=== PATIENT | female | born 1935 | race African-American/Black ===

== ENCOUNTER → 2019-01-13 | Outpatient (REF) | payer MEDICARE ==
[~2019-01-13] MED LIST: ACTONEL35 MG OR; AMLODIPINE5 MG PO; AVELOX400 MG OR; CARVEDILOL6.25 MG PO; HYCOTUSS EXP1 ML OR; HYDRALAZINE25 MG PO; HYDROCHLOR12.5 MG/CA PO; LOSARTAN POTASS50 MG PO; LOTREL 5/101 CAP OR; METFORMIN500 MG PO; NEXIUM 24HR20 MG PO; TESSALON PERLE100 MG PO; TOPROL XL25 MG OR; TRAVATAN Z0.004 % OP; ZANTAC 75 OR
[2019-01-13 10:40] LABS: HEMATOCRIT 36.7 % (37.0-47.0); HEMOGLOBIN 11.3 g/dl (12.0-16.0); MEAN CELL VOLUME 95.8 fL CALC (80.0-100.0); MEAN CORPUSCULAR HGB 29.5 pG CALC (26.0-32.0); MEAN CORPUSCULAR HGB CONC 30.8 g/L CALC (32.0-36.0); RED BLOOD COUNT 3.83 mill/uL (4.20-5.60); RED CELL DISTRI WIDTH 15.4 % (11.5-15.5)
[2019-01-13 11:36] LABS: ALBUMIN 4.1 g/dL (3.2-5.0); ALKALINE PHOSPHATASE 82 u/l (38-126); ANION GAP 13 (6-22 (CALC)); BILIRUBIN, TOTAL 0.7 mg/dL (0.0-1.4); BUN 10 mg/dL (8-23); BUN/CREATININE RATIO 10 (12-20 (CALC)); CALCULATED LDLCHOLESTEROL 98 mg/dL (62-129 (CALC)); CARBON DIOXIDE 30 mmol/l (22-30); CHLORIDE 106 mmol/l (95-108); CHOLESTEROL HDL RATIO 4.2 (<4.4 (CALC)); GFR 53 ML/MIN (>=60 (CALC)); GFR FOR AFR.AMER. > 60 ML/MIN (>=60 (CALC)); HDL CHOLESTEROL 35 mg/dL (>=40); POTASSIUM 4.2 mmol/l (3.5-5.1); SGOT/AST 26 u/l (9-36); SODIUM 145 mmol/l (137-146); TOTAL CHOLESTEROL 149 mg/dl (0-199); TOTAL PROTEIN 8.8 g/dL (6.3-8.2); TOTAL TRIGLYCERIDES 82 mg/dl (30-149); VLDL CHOLESTROL 16 mg/dl (0-48 (CALC))
[2019-01-13 11:57] LABS: TSH, 3RD GENERATION 1.51 uIU/mL (0.47 - 4.68)
== END | disposition home or self-care (01) ==
LOC: LAB 09:16
PROVIDERS: ATTEND Nurse Practitioner
DX: E11.29 Type 2 diabetes mellitus with other diabetic kidney complication (principal); E78.49 Other hyperlipidemia; I10 Essential (primary) hypertension

== ENCOUNTER 2020-03-26 16:30 | Observation (INO) | payer MEDICARE ==
[~2020-03-26] VITALS: Ht 172.7 cm; Wt 70.4 kg
[2020-03-26 18:12] LABS: HEMATOCRIT 35.5 % (37.0-47.0); HEMOGLOBIN 11.6 g/dl (12.0-16.0); IMMATURE GRANULOCYTES 0.3 % (0.0-5.0); MEAN CORPUSCULAR HGB 29.1 pG CALC (26.0-32.0); MEAN CORPUSCULAR HGB CONC 32.7 g/dL CAL (32.0-36.0); NEUT# 2.44 thou/uL (2.00-7.15); RED BLOOD COUNT 3.99 mill/uL (4.20-5.60); RED CELL DISTRI WIDTH 14.6 % (11.5-15.5)
[2020-03-26 18:20] LABS: ACT PARTIAL THROMBO TIME 25.7 SECONDS (20.0-32.5); PROTHROMBIN TIME 10.5 SECONDS (9.0-12.5)
[2020-03-26 18:22] LABS: ALBUMIN 4.1 g/dL (3.2-5.0); ALKALINE PHOSPHATASE 99 u/l (38-126); AMYLASE 77 u/l (30-110); ANION GAP 12 (6-22 (CALC)); BILIRUBIN, TOTAL 0.5 mg/dL (0.0-1.4); BUN 17 mg/dL (8-23); BUN/CREATININE RATIO 18 (12-20 (CALC)); CARBON DIOXIDE 29 mmol/l (22-30); CHLORIDE 103 mmol/l (95-108); GFR 53 ML/MIN (>=60 (CALC)); GFR FOR AFR.AMER. > 60 ML/MIN (>=60 (CALC)); LIPASE 263 u/l (23-300); POTASSIUM 3.8 mmol/l (3.5-5.1); SGOT/AST 27 u/l (9-36); SODIUM 140 mmol/l (137-146)
[2020-03-26 20:55] VITALS: BP 149/67
[2020-03-27 00:30] VITALS: BP 139/69
[2020-03-27 03:58] VITALS: BP 111/59
[2020-03-27 05:59] LABS: HEMATOCRIT 31.9 % (37.0-47.0); HEMOGLOBIN 10.4 g/dl (12.0-16.0); IMMATURE GRANULOCYTES 0.7 % (0.0-5.0); MEAN CELL VOLUME 89.6 fL CALC (80.0-100.0); MEAN CORPUSCULAR HGB 29.2 pG CALC (26.0-32.0); MEAN CORPUSCULAR HGB CONC 32.6 g/dL CAL (32.0-36.0); NEUT# 1.67 thou/uL (2.00-7.15); RED BLOOD COUNT 3.56 mill/uL (4.20-5.60); RED CELL DISTRI WIDTH 14.6 % (11.5-15.5)
[2020-03-27 06:12] LABS: ANION GAP 8 (6-22 (CALC)); BUN 14 mg/dL (8-23); BUN/CREATININE RATIO 16 (12-20 (CALC)); CARBON DIOXIDE 28 mmol/l (22-30); CHLORIDE 106 mmol/l (95-108); CREATININE 0.8 mg/dL (0.5-1.0); GFR > 60 ML/MIN (>=60 (CALC)); GFR FOR AFR.AMER. > 60 ML/MIN (>=60 (CALC)); POTASSIUM 3.3 mmol/l (3.5-5.1); SODIUM 139 mmol/l (137-146)
[2020-03-27 08:15] VITALS: BP 142/54
[2020-03-27] MEDS ORDERED: FUROSEMIDE20 MG PO (10:00)
[2020-03-27] MEDS ORDERED: POTASSIUM CHLO10 ME4 PO (10:00)
[2020-03-27] MEDS ORDERED: COZAAR100 MG PO (10:01)
[2020-03-27] MEDS ORDERED: HYDRALAZINE10 MG PO (10:01)
[2020-03-27] MEDS ORDERED: BYSTOLIC20 MG PO (10:02)
[2020-03-27] MEDS ORDERED: AMLODIPINE BESY10 MG PO (10:02)
[2020-03-27] MEDS ORDERED: LUMIGAN0.01 % OU (10:04)
[2020-03-27] MEDS ORDERED: METFORMIN500 M2 PO (10:04)
[2020-03-27] MEDS ORDERED: PROTONIX40 M2 PO (12:15)
== END 2020-03-27 14:05 | disposition home or self-care (01) ==
LOC: ED 16:30 → ED-I 18:40 → ED 18:58 → ED-I 18:59 → MS2 18:59
PROVIDERS: ADMIT Internal Medicine; ATTEND Internal Medicine
DX: R07.2 Precordial pain (principal); K21.9 Gastro-esophageal reflux disease without esophagitis; I11.0 Hypertensive heart disease with heart failure; I50.32 Chronic diastolic (congestive) heart failure; I25.10 Atherosclerotic heart disease of native coronary artery without angina pectoris; E11.9 Type 2 diabetes mellitus without complications; I25.2 Old myocardial infarction; Z79.84 Long term (current) use of oral hypoglycemic drugs; Z20.828 Contact with and (suspected) exposure to other viral communicable diseases
CPT/HCPCS: G0378

== ENCOUNTER 2020-07-26 08:37 | Inpatient (IN) | payer MEDICARE ==
[~2020-07-26] VITALS: Ht 172.7 cm; Wt 66.3 kg
[~2020-07-26 08:37] MED LIST changes: +AMLODIPINE BESY10 MG PO; +BYSTOLIC20 MG PO; +COZAAR100 MG PO; +FUROSEMIDE20 MG PO; +HYDRALAZINE10 MG PO; +LUMIGAN0.01 % OU; +METFORMIN500 M2 PO; +POTASSIUM CHLO10 ME4 PO; +PROTONIX40 M2 PO
--- NOTE | 2020-07-26 08:40 | NUR ---
PT WHEELED TO ROOM # 10 FOR BEDSIDE TRIAGE.
--- NOTE | 2020-07-26 08:45 | NUR ---
PT CHANGED TO GOWN. EKG DONE. MONITORS APPLIED. PT AO X 3. SKIN PINK WARM AND DRY. REPORTS GENERALIZED FRONTAL CHEST PAIN, WORSE WITH PALPATION SINCE 0600
[2020-07-26 09:26] LABS: IMMATURE GRANULOCYTES 0.4 % (0.0-5.0); MEAN CELL VOLUME 88.6 fL CALC (80.0-100.0); MEAN CORPUSCULAR HGB CONC 32.7 g/dL CAL (32.0-36.0); NEUT# 4.76 thou/uL (2.00-7.15); RED BLOOD COUNT 3.17 mill/uL (4.20-5.60); RED CELL DISTRI WIDTH 15.7 % (11.5-15.5)
[2020-07-26 09:31] LABS: HEMATOCRIT 28.1 % (37.0-47.0); HEMOGLOBIN 9.2 g/dl (12.0-16.0)
[2020-07-26 09:47] LABS: ALBUMIN 3.5 g/dL (3.2-5.0); ALKALINE PHOSPHATASE 68 u/l (38-126); AMYLASE 125 u/l (30-110); ANION GAP 11 (6-22 (CALC)); BILIRUBIN, TOTAL 0.5 mg/dL (0.0-1.4); BUN 22 mg/dL (8-23); BUN/CREATININE RATIO 28 (12-20 (CALC)); CARBON DIOXIDE 25 mmol/l (22-30); CHLORIDE 105 mmol/l (95-108); CREATININE 0.8 mg/dL (0.5-1.0); GFR > 60 ML/MIN (>=60 (CALC)); GFR FOR AFR.AMER. > 60 ML/MIN (>=60 (CALC)); LIPASE 729 u/l (23-300); POTASSIUM 3.4 mmol/l (3.5-5.1); SODIUM 136 mmol/l (137-146); TOTAL PROTEIN 7.6 g/dL (6.3-8.2)
[2020-07-26 09:48] LABS: SGOT/AST 44 u/l (9-36)
[2020-07-26 09:58] LABS: MYOGLOBIN 26 ng/mL (0 - 62)
--- NOTE | 2020-07-26 10:14 | NUR ---
MULTIPLE ATTEMPTS TO START IV FOR CT UNSUCCESSFUL.
--- NOTE | 2020-07-26 10:39 | NUR ---
PT RESTING ON STRETCHER. AWAITING PICC LINE INSERTION
--- NOTE | 2020-07-26 10:48 | NUR ---
PT TO XRAY FOR PICC LINE INSERTION
[2020-07-26] MEDS ORDERED: CARVEDILOL12.5 MG PO (11:10)
--- NOTE | 2020-07-26 12:00 | NUR ---
PT RETURNED FROM CT. LABS DRAWN. PT POSITIONED FOR COMFORT. MONITORS IN PLACE.
[2020-07-26] MEDS ORDERED: RAYOS1 MG PO (12:20)
--- NOTE | 2020-07-26 13:00 | NUR ---
PT RESTING ON STRETCHER. AWAITING RESULTS
--- NOTE | 2020-07-26 13:45 | NUR ---
REPORT GIVEN TO BHARTI ANNPE MANAGER
--- NOTE | 2020-07-26 14:00 | NUR ---
PT TRANSPORTED VIA STRETCHER TO MED SURG TELEMETRY IN PLACE
--- NOTE | 2020-07-26 14:00 | NUR ---
PT ARRIVED FROM ER VIA STRETCHER ACCOMPANIED BY STAFF. IV SITE IS FREE FROM REDNESS OR EDEMA TELE MONITOR IN PLACE.
--- NOTE | 2020-07-26 14:10 | NUR ---
ASSESSMENT IS COMPLETED: IV SITE IS FREE FROM REDNESS OR EDEMA. HR IS REG,PULSES ARE STRONG X4, ABD IS SOFT WITH ACTIVE BS. BREATH SOUNDS ARE CLEAR,BILATERALLY, C/O PAIN IN MID SECTION OF CHEST AND TOWARDS THE BACK. TELE MONITOR IN PLACE. CONTINUE TO OSBERVE AND MONITOR. PT HAS A PICC LINE AND ALSO A REGULAR IV IN THE HAND.
[2020-07-26 14:31] VITALS: BP 164/86
--- NOTE | 2020-07-26 16:30 | NUR ---
PT IS RESTING IN BED WITH NO DISTRESS NOTED.
[2020-07-26 17:31] VITALS: BP 157/75
--- NOTE | 2020-07-26 18:35 | NUR ---
LABS DRAWN AND SENT FOR TESTING.
[2020-07-26 19:15] VITALS: BP 139/81
--- NOTE | 2020-07-26 20:00 | NUR ---
PATIENT ALERT, VERBAL, ABLE TO MAKE NEEDS KNOWN. ABLE TO TOLERATE MEDS WELL WHOLE. PATIENT REMAINS NPO--ICE CHIPS ONLY ORDERED. PIV SITE PATENT TO LEFT HAND--FLUSHES WELL--SITE WITHOUT ANY S/S OF INFECTION NOTED--DRSG C/D/I. PICC LINE ALSO PATENT TO RUE--FLUSHES WELL--SITE WITHOUT ANY S/S OF INFECTION NOTED--NS W/40K INFUSING @ 75ML/HR WITHOUT DIFFICULTY--TOLERATING INFUSION WELL. TROPONIN DRAWN @ 6PM WNL @ 0.020--DUE AGAIN Q HOURS @ 12AM. NO C/OS OF CHEST PAIN/NAUSEA, OR VOMITING--ONLY HAS C/OS ABDOMNIAL PAIN--MEDICATED @ HS WITH PRN MORPHINE WITH POSITIVE EFFECT. TELEMETRY IN PLACE WITH SINUS RHYTHM W/IVCD @ 80. CONT OF BOWEL AND BLADDER--ABLE TO AMBULATE TO AND FROM BR INDEPENDENTLY IN ROOM--HOWEVER HAS BEDSIDE COMMODE IN USE AT THIS TIME. FSBS ORDERED WITH SSI PRN--NO S/S OF GLYCEMIC REACTION NOTED. REMAINS ON LOVENOX INJECTION WELL--NO S/S OF ABNORMAL BLEEDING NOTED. WILL CONT TO MONITOR FOR ANY FURTHER CHANGES.
[2020-07-26 23:48] VITALS: BP 129/75
--- NOTE | 2020-07-27 | NUR ---
PATIENT RESTING SOUNDLY IN BED WITH EYES CLOSED AT THIS TIME. NO APPARENT DISTRESS NOTED. NS W/40K INFUSING WELL @ 75ML/HR WITHOUT DIFFICULTY--TOLERATING FLUIDS WELL VIA POWER PICC IN RUE--FLUSHES WELL--SITE UNREMARKABLE. PIV SITE PATENT TO LEFT HAND WELL--SITE UNREMARKABLE--FLUSHES WELL. TELEMETRY IN PLACE--SINUR RHYTHM W/IVCD @ 74. TROPONIN OBTAINED VIA PICC AND RESULTED @ 0000 @ 0.026--WNL. PATIENT REMAINS NPO WITH ONLY ICE CHIPS--COMPLIANT. WILL CONT TO MONITOR FOR ANY FURTHER CHANGES.
--- NOTE | 2020-07-27 04:00 | NUR ---
PATIENT RESTING SOUNDLY IN BED WITH EYES CLOSED AT THIS TIME. PIV SITE PATENT TO LEFT HAND--FLUSHES WELL--SITE UNREMARKABLE--PICC LINE PATENT TO RUE--FLUSHES WELL--SITE UNREMARKABLE--NS W/4OK INFUSING @ 75ML.HR WITHOUT DIFFICULTY--TOLERATING FLUIDS WELL. REMAINS NPO WITH ONLY ICE CHIPS ALLOWED. NO APPARENT DISTRESS NOTED. WILL CONT TO MONITOR FOR ANY FURTHER CHANGES.
[2020-07-27 04:20] VITALS: BP 136/66
[2020-07-27 06:17] LABS: HEMATOCRIT 22.3 % (37.0-47.0); HEMOGLOBIN 7.4 g/dl (12.0-16.0); IMMATURE GRANULOCYTES 0.5 % (0.0-5.0); MEAN CELL VOLUME 90.3 fL CALC (80.0-100.0); MEAN CORPUSCULAR HGB CONC 33.2 g/dL CAL (32.0-36.0); NEUT# 3.91 thou/uL (2.00-7.15); RED BLOOD COUNT 2.47 mill/uL (4.20-5.60)
[2020-07-27 06:34] LABS: ALBUMIN 2.8 g/dL (3.2-5.0); ALKALINE PHOSPHATASE 55 u/l (38-126); BILIRUBIN, TOTAL 0.5 mg/dL (0.0-1.4); BUN 21 mg/dL (8-23); BUN/CREATININE RATIO 28 (12-20 (CALC)); CALCULATED LDLCHOLESTEROL 72 mg/dL (62-129 (CALC)); CARBON DIOXIDE 23 mmol/l (22-30); CHLORIDE 109 mmol/l (95-108); CREATININE 0.7 mg/dL (0.5-1.0); GFR > 60 ML/MIN (>=60 (CALC)); GFR FOR AFR.AMER. > 60 ML/MIN (>=60 (CALC)); HDL CHOLESTEROL 23 mg/dL (>=40); LIPASE 834 u/l (23-300); MAGNESIUM 1.7 mg/dL (1.6-2.3); SGOT/AST 39 u/l (9-36); SODIUM 138 mmol/l (137-146); TOTAL CHOLESTEROL 114 mg/dl (0-199); TOTAL PROTEIN 6.4 g/dL (6.3-8.2); TOTAL TRIGLYCERIDES 99 mg/dl (30-149); VLDL CHOLESTROL 20 mg/dl (0-48 (CALC))
[2020-07-27 06:35] LABS: ANION GAP 10 (6-22 (CALC)); POTASSIUM 4.2 mmol/l (3.5-5.1)
[2020-07-27 08:20] VITALS: BP 155/86
--- NOTE | 2020-07-27 08:20 | NUR ---
ASSESSMENT IS COMPLETED: IV SITE IS FREE FROM REDNESS OR EDEMA. HR IS REG,PULSES ARE STRONG X4, ABD IS SOFT WITH ACTIVE BS. BREATH SOUNDS ARE CLEAR,BILATERALLY. NO C/O SOB. TELE MONITOR IN PLACE. CONTINUE TO OBSERE AND MONITOR.
[2020-07-27 10:30] VITALS: BP 140/50
--- NOTE | 2020-07-27 10:30 | NUR ---
PT TRANSPORTED TO HAVE AN US COMPLETED. VIA WC
--- NOTE | 2020-07-27 11:06 | NUR ---
PT RETUNRED FROM US.
--- NOTE | 2020-07-27 12:30 | NUR ---
pt has been relaxing and family in the room. continue to observe and monitor.
--- NOTE | 2020-07-27 14:10 | NUR ---
PT TRANSPORTED TO HAVE AN MRI COMPLTED
--- NOTE | 2020-07-27 14:15 | NUR ---
ASSISTED PT ON REMOVING HER JEWELRY FOR THE MRI. UNABLE TO GET 3 RINGS OFF. INFOMRED MANAGER DECISION SUPPORT.
[2020-07-27 15:00] VITALS: BP 133/80
--- NOTE | 2020-07-27 16:45 | NUR ---
PT IS RELAXING IN BED WITH NO DISTRESS NOTED. IV SITE IS FREE FROM REDNESS OR EDEMA. CONTINUE TO OSBERVE AND MONITOR.
--- NOTE | 2020-07-27 17:34 | NUR ---
FAMILY CALLED FROM [place] REQUESTING A LITTLE OXYGEN, CHAP STICK FOR DRY LIPS.,AND MAYBE SOME ICE CHIPS. PT WANTING TO EAT UNABLE TO AT THIS TIME.
[2020-07-27 19:08] VITALS: BP 142/81
--- NOTE | 2020-07-27 19:30 | NUR ---
REPORT RECEIVED FROM Erlinda MCMANUS LPN, CARE OF PT ASSUMED AT THIS TIME.
--- NOTE | 2020-07-27 21:00 | NUR ---
PHYSICAL ASSESMENT COMPLETE. SCHEDULED 2100 MEDICATION AND REQUESTED PRN MEDICATIONS ADMINISTERED, SEE E-MAR. PLAN OF CARE REVIEWED. DENIES QUESTIONS, VERBALIZES UNDERSTANDING. PT DENIES FURTHER NEEDS AT THIS TIME. CALL SAMANO WITHIN REACH, AGREES TO CALL PRN.
[2020-07-27 23:40] VITALS: BP 139/80
[2020-07-28] VITALS (9 sets, daily range): BP systolic 115–143; BP diastolic 60–81
--- NOTE | 2020-07-28 00:22 | NUR ---
PT APPEARS TO BE SLEEPING COMFORTABLY, NO APPARENT DISTRESS, RESPIRATIONS REGULAR AND UNLABORED. ITEMS REMAIN WITHIN REACH, BED REMAINS LOCKED IN LOW POSITION W/ BEDRAILS UP X2. CALL SAMANO REMAINS WITHIN REACH.
--- NOTE | 2020-07-28 04:17 | NUR ---
BLOOD DRAWN FROM [facility] PICC PER POLICY PROTOCOL. TYPE AND SCREEN DONE. PT BANDED WITH [employer] ATTENDANT. PT DENIES FURTHER NEEDS AT THIS TIME. CALL SAMANO WITHIN REACH, AGREES TO CALL PRN.
[2020-07-28 06:04] LABS: HEMATOCRIT 21.9 % (37.0-47.0); IMMATURE GRANULOCYTES 0.9 % (0.0-5.0); MEAN CELL VOLUME 92.8 fL CALC (80.0-100.0); MEAN CORPUSCULAR HGB 29.7 pG CALC (26.0-32.0); NEUT# 3.89 thou/uL (2.00-7.15); RED BLOOD COUNT 2.36 mill/uL (4.20-5.60)
[2020-07-28 06:10] LABS: ALBUMIN 2.6 g/dL (3.2-5.0); ALKALINE PHOSPHATASE 51 u/l (38-126); ANION GAP 9 (6-22 (CALC)); BILIRUBIN, TOTAL 0.4 mg/dL (0.0-1.4); BUN 22 mg/dL (8-23); BUN/CREATININE RATIO 34 (12-20 (CALC)); CARBON DIOXIDE 23 mmol/l (22-30); CHLORIDE 111 mmol/l (95-108); CREATININE 0.6 mg/dL (0.5-1.0); GFR > 60 ML/MIN (>=60 (CALC)); GFR FOR AFR.AMER. > 60 ML/MIN (>=60 (CALC)); POTASSIUM 4.7 mmol/l (3.5-5.1); SGOT/AST 40 u/l (9-36); SODIUM 139 mmol/l (137-146)
--- NOTE | 2020-07-28 07:45 | NUR ---
ASSESSMENT IS COMPLETED: IV SITE IS FREE FROM REDNESS OR EDEMA. HR IS REG,PULSES ARE STRONG X4, ABD IS SOFT WITH ACTIVE BS. BREATH SOUNDS ARE CLEAR,BILATERALLY, SPITTING UP SMALL AMOUNT OF "CLEAR PHLEGM" NO COUGHING NOTED. TELE MONITOR IN PLACE. CONTINUE TO OSBERVE AND MONITOR.
--- NOTE | 2020-07-28 10:05 | NUR ---
DR ALBARADO IN TO VISIT WITH PT. NO DISTRESS NOTED.
--- NOTE | 2020-07-28 11:21 | NUR ---
PT RECEIVING 1ST UNIT OF BLOOD. FAMILY IN THE ROOM.
--- NOTE | 2020-07-28 12:45 | NUR ---
PT IS RELAXING AND HAVING FAMILY VISITORS. IV SITE IS FREE FROM REDNESS OR EDEMA. BLOOD CONTINUES TO INFUSE.
--- NOTE | 2020-07-28 16:20 | NUR ---
PT IS RELAXING IN BED WITH NO DISTRESS NOTED. IV SITE IS FREE FROM REDNESS OR EDEMA.
--- NOTE | 2020-07-28 19:20 | NUR ---
PT SLEEPING, NO S/O DISTRESS NOTED. CALL LIGHT IS W/IN REACH.
--- NOTE | 2020-07-28 20:01 | NUR ---
REPORT RECEIVED FROM RN. PT RESTING IN BED SUPINE; ASSESSMENT AND VITALS COMPLETE ALERT AND ORIENTED. PT DENIES PAIN, STATES PAIN UPON EXCURSION. DANYEL ASSIST TO THE BSC. NS 40K RUNNING AT 75 IN RIGHT ARM PICC. PT ENCOURAGED TO VERBALIZE CONCERNS. STATES UNDERSTANDING. SAFETY MEASURES IN PLACE. CALL LIGHT WITHIN REACH.
[2020-07-29] VITALS: BP 135/78
[2020-07-29 04:00] VITALS: BP 129/78
--- NOTE | 2020-07-29 04:01 | NUR ---
PHYSICAL ASSESSMENT REMAINS UNCHANGED FROM THE BEGINNING OF THE SHIFT. PT RESTING QIETLY WITH NO STATED NNEDS OR REQUESTS. PEERSONAL ITEMS AND CALL SAMANO ARE WITHIN REACH. BED IS IN LOW POSITION W/BEDRAILS UP X2. PT AGREES TO CALL PRN.
--- NOTE | 2020-07-29 04:34 | NUR ---
PT OFFERED MILK OF MAG W/PRUNE JUICE FOR STOOL ASSISTANCE. PT REFUSED MOM, BUT AGREED TO DRINK THE WARM PRUNE JUICE. PROVIDED.
[2020-07-29 04:57] LABS: HEMATOCRIT 26.3 % (37.0-47.0); HEMOGLOBIN 8.6 g/dl (12.0-16.0); IMMATURE GRANULOCYTES 0.5 % (0.0-5.0); MEAN CORPUSCULAR HGB 29.8 pG CALC (26.0-32.0); MEAN CORPUSCULAR HGB CONC 32.7 g/dL CAL (32.0-36.0); NEUT# 5.69 thou/uL (2.00-7.15); RED BLOOD COUNT 2.89 mill/uL (4.20-5.60); RED CELL DISTRI WIDTH 16.4 % (11.5-15.5)
[2020-07-29 05:18] LABS: ALBUMIN 2.6 g/dL (3.2-5.0); ALKALINE PHOSPHATASE 52 u/l (38-126); ANION GAP 9 (6-22 (CALC)); BILIRUBIN, TOTAL 0.5 mg/dL (0.0-1.4); BUN 21 mg/dL (8-23); BUN/CREATININE RATIO 31 (12-20 (CALC)); CARBON DIOXIDE 24 mmol/l (22-30); CHLORIDE 109 mmol/l (95-108); CREATININE 0.7 mg/dL (0.5-1.0); GFR > 60 ML/MIN (>=60 (CALC)); GFR FOR AFR.AMER. > 60 ML/MIN (>=60 (CALC)); POTASSIUM 4.6 mmol/l (3.5-5.1); SGOT/AST 42 u/l (9-36); SODIUM 137 mmol/l (137-146)
[2020-07-29 07:45] VITALS: BP 121/63
--- NOTE | 2020-07-29 07:45 | NUR ---
ASSESMENT IS COMPLETED : IV SITE IS FREE FROM REDNESS OR EDEMA. HR IS REG, PULSES ARE STRONG X4M, ABD IS SOFT WITH ACTIVE BS. BREATH SOUNS ARE CLEAR,BILATERALLY, CONTINUE TO OSBERVE AND MONITOR TELE MONITOR IN PLACE.
[2020-07-29 10:30] VITALS: BP 129/83
--- NOTE | 2020-07-29 11:23 | NUR ---
FAMILY ASSISTING PT WITH A GOWN AND IV SITE CAME OUT. PT HAS APICC LINE IN THE R UPPER ARM.
--- NOTE | 2020-07-29 12:30 | NUR ---
PT IS RELAXING IN THE ROOM. FAMILY IN THE ROOM. IV SITE IS FREE FROM REDNESS OR EDEMA.
[2020-07-29 15:00] VITALS: BP 133/83
--- NOTE | 2020-07-29 16:30 | NUR ---
PT IS RELAXING IN BED WITH NO DISTRESS NOTED IV SITE IS FREE FROM REDNESS OR EDEMA. CONTINUE TO OSBERVE AND MONITOR.
[2020-07-29 19:00] VITALS: BP 138/80
--- NOTE | 2020-07-29 20:01 | NUR ---
PT ASSESSMENT COMPLETED AND MEDICATED ORDERS PROVIDE. PT REPORTS LACK OF APPETITE, DENIES NAUSEA. CHOCHOLATE CAKE NEXT TO PT, I DISCUSSED FOODS WITH PT AND RECOMMENDED JELLOW OR BROTH OR CRACKERS, SHE ASKED FOR JELLO/PROVIDED AND WARM PRUNE JUICE WITH MILK OF MAG FOR STOOL ASSISTANCE. DENIKES ANY OTHER NEEDS.
--- NOTE | 2020-07-29 23:42 | NUR ---
PT SLEEPING, IVPUMP SOUNDING. NO S/O DISTRESS NOTED.
[2020-07-30] VITALS: BP 131/77
[2020-07-30 04:00] VITALS: BP 133/78
--- NOTE | 2020-07-30 07:20 | NUR ---
REPORT RECEIVED FROM SETH ARAIZA. PT RESTING IN BED ON LEFT SIDE WITH EYES CLOSED; AWAKENS TO VERBAL STIMULI; ALERT AND ORIENTED. DENIES PAIN CURRENTLY; DOES C/O OF SOME MILD NAUSEA; NO SOB ON ROOM AIR. ACCU CHECK 123. LUNGS ARE CLEAR; BS ACTIVE; NO EDEMA. IV FLUIDS INFUSING WITHOUT DIFFICULTY; IV SITE APPEARS HEALTHY. VSS. PLAN OF CARE REVIEWED. PT ENCOURAGED TO VERBALIZE CONCERNS. STATES UNDERSTANDING. SAFETY MEASURES IN PLACE. CALL LIGHT WITHIN REACH.
[2020-07-30 07:33] VITALS: BP 134/77
--- NOTE | 2020-07-30 09:50 | NUR ---
PT NOW SITTING UP IN CHAIR WITH DAUGHTER AT BEDSIDE. UPDATED ON PT CONDITION. PT DECLINED SHOWER. NEW ORDERS RECEIVED; PROTONIX GIVEN.
[2020-07-30 11:21] VITALS: BP 129/79
--- NOTE | 2020-07-30 15:06 | NUR ---
ZOFRAN GIVEN FOR MILD NAUSEA; PT SPITTING UP LARGE AMOUNTS OF FLEM. DUCOLAX SUPPOSITORY ALSO GIVEN TO ASSIST WITH BOWEL MOVEMENT.
[2020-07-30 16:00] VITALS: BP 138/73
--- NOTE | 2020-07-30 17:35 | NUR ---
UP TO BSC; POSITIVE RESULTS FROM DULCOLAX SUPPOSITORY. REPORT GIVEN TO SETH CASEY.
[2020-07-30 19:02] VITALS: BP 158/76
--- NOTE | 2020-07-30 20:50 | NUR ---
Upon entering room, pt awake laying in bed watching t.v. ABle to verbalize needs. States 0/10 pain at time of writing. Physical assesment completed without abnormal findings. Tele leads readjusted for more effective readings. RUE PICC appears healthy, pt denies any pain at site. Denies any Nausea at time of writing. EMAR rendered as ordered. Safety measures in place with call smallwood placed at bedside within easy reach. Will continue to monitor for any new changes in codnition.
[2020-07-31] VITALS (10 sets, daily range): BP systolic 96–149; BP diastolic 59–71
--- NOTE | 2020-07-31 00:46 | NUR ---
Resident resting well in bed, lights out, t.v off. Easily aroused when entering room. Pt states 1/10 pain at time of writing. Will cotninue to monitor for any new changes in condition.
--- NOTE | 2020-07-31 04:48 | NUR ---
Pt sleeping well in bed, lights and t.v off. Easily aroused when knocking on door. Will continue to monitor for any new changes in condition.
[2020-07-31 05:27] LABS: HEMATOCRIT 23.2 % (37.0-47.0); HEMOGLOBIN 7.5 g/dl (12.0-16.0); IMMATURE GRANULOCYTES 0.6 % (0.0-5.0); MEAN CELL VOLUME 92.4 fL CALC (80.0-100.0); MEAN CORPUSCULAR HGB 29.9 pG CALC (26.0-32.0); MEAN CORPUSCULAR HGB CONC 32.3 g/dL CAL (32.0-36.0); NEUT# 4.65 thou/uL (2.00-7.15); RED BLOOD COUNT 2.51 mill/uL (4.20-5.60); RED CELL DISTRI WIDTH 16.6 % (11.5-15.5)
[2020-07-31 05:51] LABS: ALBUMIN 2.4 g/dL (3.2-5.0); ALKALINE PHOSPHATASE 48 u/l (38-126); ANION GAP 9 (6-22 (CALC)); BILIRUBIN, TOTAL 0.6 mg/dL (0.0-1.4); BUN 14 mg/dL (8-23); BUN/CREATININE RATIO 21 (12-20 (CALC)); CARBON DIOXIDE 22 mmol/l (22-30); CHLORIDE 108 mmol/l (95-108); CREATININE 0.7 mg/dL (0.5-1.0); GFR > 60 ML/MIN (>=60 (CALC)); GFR FOR AFR.AMER. > 60 ML/MIN (>=60 (CALC)); LIPASE 508 u/l (23-300); POTASSIUM 4.7 mmol/l (3.5-5.1); SGOT/AST 43 u/l (9-36); SODIUM 134 mmol/l (137-146); TOTAL PROTEIN 5.7 g/dL (6.3-8.2)
--- NOTE | 2020-07-31 09:00 | NUR ---
PT SEEN AT REST IN THE BED, NO EVIDENCE OF DISTRESS. PT TO RECEIVE SINGLE UNIT OF PRBCs TODAY. PT MEDICATED FOR NAUSEA. RUE PICC WORKING WELL.
--- NOTE | 2020-07-31 13:00 | NUR ---
PT HAS RECEIVED PRBC UNIT WITHOUT ADVERSE REACTION. FAMILY MEMBER AT BEDSIDE FOR PORTION OF THE MORNING, SUPPORTIVE. PT IS ELDERLY, FRAGILE.
--- NOTE | 2020-07-31 20:01 | NUR ---
REPORT RECEIVED FROM REUBEN ANN. PT RESTING IN BED SUPINE; ASSESSMENT AND VITALS COMPLETE ALERT AND ORIENTED. PT DENIES PAIN, STATES PAIN UPON EXCURSION. ONE ASSIST TO THE BSC. NS 40K RUNNING AT 75 IN RIGHT ARM PICC. PT ENCOURAGED TO VERBALIZE CONCERNS. STATES UNDERSTANDING. SAFETY MEASURES IN PLACE. CALL LIGHT WITHIN REACH.
[2020-08-01] VITALS (8 sets, daily range): BP systolic 119–156; BP diastolic 62–88
--- NOTE | 2020-08-01 00:36 | NUR ---
PT SEEN AT REST IN THE BED, NO EVIDENCE OF DISTRESS. PT HAS RUE PICC RECEIVING NS W40K. SITE IS PATENT WITH NO REDNESS OR SWELLING. CALL SAMANO WITHIN REACH. WILL CONTINUE TO MONITOR.
--- NOTE | 2020-08-01 04:00 | NUR ---
PT SLEEPING, NO S/O DISTRESS NOTED. CALL LIGHT IS W/IN REACH.
[2020-08-01 04:54] LABS: HEMATOCRIT 27.8 % (37.0-47.0); HEMOGLOBIN 9.1 g/dl (12.0-16.0); IMMATURE GRANULOCYTES 0.5 % (0.0-5.0); MEAN CELL VOLUME 90.6 fL CALC (80.0-100.0); MEAN CORPUSCULAR HGB 29.6 pG CALC (26.0-32.0); MEAN CORPUSCULAR HGB CONC 32.7 g/dL CAL (32.0-36.0); NEUT# 4.09 thou/uL (2.00-7.15); RED BLOOD COUNT 3.07 mill/uL (4.20-5.60); RED CELL DISTRI WIDTH 17.2 % (11.5-15.5)
[2020-08-01 05:11] LABS: ALBUMIN 2.4 g/dL (3.2-5.0); ALKALINE PHOSPHATASE 49 u/l (38-126); ANION GAP 11 (6-22 (CALC)); BILIRUBIN, TOTAL 0.8 mg/dL (0.0-1.4); BUN 14 mg/dL (8-23); BUN/CREATININE RATIO 19 (12-20 (CALC)); CARBON DIOXIDE 22 mmol/l (22-30); CHLORIDE 108 mmol/l (95-108); CREATININE 0.7 mg/dL (0.5-1.0); GFR > 60 ML/MIN (>=60 (CALC)); GFR FOR AFR.AMER. > 60 ML/MIN (>=60 (CALC)); POTASSIUM 4.5 mmol/l (3.5-5.1); SGOT/AST 42 u/l (9-36); SODIUM 136 mmol/l (137-146); TOTAL PROTEIN 5.6 g/dL (6.3-8.2)
--- NOTE | 2020-08-01 08:00 | NUR ---
PT. TO GO TODAY TO ENDOSCOPY FOR DIAGNOSTIC PURPOSES. ON CLEAR LIQUIDS A&O X 2-3. OCC. COUGH. DUAL PICC PATENT BRUNA. BOWEL SOUNDS PRESENT AND LUNGS CLEAR. NO C/O PAIN AT THIS TIME. WILL MONITOR.
--- NOTE | 2020-08-01 12:00 | NUR ---
PT. RETURENED CLOSE TO 10 AM FROM ENDOSCOPY SUITE AND STUDY REVEALED A "MASS IN THE STOMACH". PT. WILL BE TRANSPORTED THIS AFTEROON TO [facility] FOR FURTHER EVALUATION AND TREATMENT.
--- NOTE | 2020-08-01 16:08 | NUR ---
PT HAS BEEN TRANSFERRED TO [facility] AT THIS TIME VIA [facility]. PT LEAVES [facility] IN STABLE CONDITION, NO DISTRESS OR COMPLAINTS. REPORT WAS CALLED TO VENESSA ANN.
== END 2020-08-01 15:16 | disposition short-term general hospital (02) | DRG 374 ==
LOC: ED 08:37 → ED-I 12:53 → ED 13:08 → MS2 13:09
PROVIDERS: Emergency Medicine; Nurse Practitioner; Nurse Practitioner Family; ADMIT Internal Medicine; ATTEND Internal Medicine
PROC: 02HV33Z Insertion of Infusion Device into Superior Vena Cava, Percutaneous Approach (ICD-10-PCS; principal; 2020-07-26)
PROC: B518ZZA Fluoroscopy of Superior Vena Cava, Guidance (ICD-10-PCS; 2020-07-26)
PROC: 30233N1 Transfusion of Nonautologous Red Blood Cells into Peripheral Vein, Percutaneous Approach (ICD-10-PCS; 2020-07-28)
PROC: 30233N1 Transfusion of Nonautologous Red Blood Cells into Peripheral Vein, Percutaneous Approach (ICD-10-PCS; 2020-07-31)
PROC: 0DB58ZX Excision of Esophagus, Via Natural or Artificial Opening Endoscopic, Diagnostic (ICD-10-PCS; 2020-08-01)
PROC: 0DB68ZX Excision of Stomach, Via Natural or Artificial Opening Endoscopic, Diagnostic (ICD-10-PCS; 2020-08-01)
DX: C16.0 Malignant neoplasm of cardia (principal); K85.90 Acute pancreatitis without necrosis or infection, unspecified; C15.9 Malignant neoplasm of esophagus, unspecified; K92.2 Gastrointestinal hemorrhage, unspecified; D50.0 Iron deficiency anemia secondary to blood loss (chronic); I10 Essential (primary) hypertension; E11.9 Type 2 diabetes mellitus without complications; I25.10 Atherosclerotic heart disease of native coronary artery without angina pectoris; E87.6 Hypokalemia; K21.9 Gastro-esophageal reflux disease without esophagitis; Z79.84 Long term (current) use of oral hypoglycemic drugs; Z20.828 Contact with and (suspected) exposure to other viral communicable diseases
CPT/HCPCS: G0378; J1650; P9016; Q9967; S0164